=== PATIENT | male | born 1955 | race African-American/Black ===

== ENCOUNTER 2023-06-23 07:18 | Emergency (ER) | payer BC ==
[~2023-06-23] VITALS: Ht 182.9 cm; Wt 95.0 kg
[2023-06-23 07:24] VITALS: O2SAT 98
[2023-06-23 08:54] LABS: BASOPHILS % 0.5 % (0.0-2.0); EOSINOPHILS % 8.4 % (0.0-5.0); HEMATOCRIT. 49.2 % (42.0-52.0); HEMOGLOBIN. 16.7 g/dL (14.0-18.0); LYMPHOCYTES % 43.4 % (20.0-50.0); MEAN CORPUSCULAR HGB CONC 33.9 g/dL (31.0-37.0); MEAN CORPUSCULAR VOLUME 94.5 fL (80.0-94.0); MEAN PLATELET VOLUME 7.8 fl (7.4-10.4); MONOCYTES % 7.5 % (2.0-8.0); NEUTROPHILS % 40.2 % (40.0-76.0); PLATELET 250 x1000/uL (130-400); RED BLOOD CELL COUNT 5.21 mill/uL (4.7-6.1); RED CELL DISTRIBUTION WIDTH 13.7 % (11.6-14.6); WHITE BLOOD COUNT 4.7 x1000/uL (4.5-11.0)
[2023-06-23 09:12] LABS: ALANINE AMINOTRANSFERASE 38 IU/L (10-49); ALBUMIN 4.9 g/dL (3.2-4.8); ASPARTATE AMINOTRANSFERASE 34 IU/L (<34); BILIRUBIN TOTAL 0.6 mg/dL (0.1-1.0); CALCIUM 9.7 mg/dL (8.7-10.4); CARBON DIOXIDE 25 mEq/L (21-32); CHLORIDE 104 mEq/L (98-107); ETHANOL BLOOD 48 mg/dL (<10); GLUCOSE 96 mg/dL (70-105); POTASSIUM 4.3 mEq/L (3.5-5.1); PROTEIN TOTAL 8.3 g/dL (6.0-8.3); SODIUM 140 mEq/L (136-145); TROPONIN I HIGH SENSITIVITY 12 ng/L (3.0-53); UREA NITROGEN BLOOD 7 mg/dL (9-23)
[2023-06-23] MEDS: DIAZEPAM 5 MG/ML 2ML CPJ IV ONE ×2 (09:25)
[2023-06-23] MEDS ORDERED: SODIUM CHLORIDE 0.9% 1,000 ML IV NR (11:00)
[2023-06-23 15:05] LABS: TROPONIN I HIGH SENSITIVITY 12 ng/L (3.0-53)
[2023-06-23 16:36] VITALS: BP 138/94; PULSE 86; RESP 4; TEMP 98.9
== END 2023-06-23 16:37 | disposition home or self-care (01) ==
LOC: ER 08:01
DX: R07.89 Other chest pain (principal); R00.2 Palpitations; A41.9 Sepsis, unspecified organism; J45.909 Unspecified asthma, uncomplicated
CPT/HCPCS: 36415; 71045; 80053; 80320; 83605; 83880; 84484; 85025; 93005; 96374; 99285; G0480